=== PATIENT | female | born 2005 | race Caucasian/White ===

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

== ENCOUNTER 2024-02-18 12:03 | Emergency (ER) | payer OTHER ==
[~2024-02-18] VITALS: Ht 157.5 cm; Wt 50.8 kg
[~2024-02-18 12:03] MED LIST changes: -ACET-8386 PO; +ACET-8905 PO; +CALC-870 PO; +FAMO-90 PO
[2024-02-18 12:07] VITALS: BP 120/88; PULSE 90; RESP 22; TEMP 98.8; O2SAT 99
[2024-02-18 12:30] VITALS: O2SAT 99
[2024-02-18 12:41] VITALS: O2SAT 99
[2024-02-18] MEDS: ONDANSETRON 4 MG ODT PO ONE (12:41)
[2024-02-18] MEDS: DEXAMETHASONE 10 MG/ML VIAL IM ONE (12:42)
[2024-02-18] MEDS: KETOROLAC 30 MG/ML VIAL IM ONE (12:43)
[2024-02-18] MEDS ORDERED: IBUP-2213 PO (13:03)
[2024-02-18] MEDS ORDERED: PROM118S5 PO (13:03)
[2024-02-18] MEDS ORDERED: BENZ-300 PO (13:03)
[2024-02-18] MEDS ORDERED: ONDA-188 SL (13:03)
[2024-02-18] MEDS ORDERED: IMO2 PO (13:03)
[2024-02-18 13:29] LABS: FLU A ANTIGEN negative (NEGATIVE); FLU B ANTIGEN NEGATIVE (NEGATIVE)
== END 2024-02-18 13:19 | disposition home or self-care (01) ==
LOC: MED 12:03
DX: B34.9 Viral infection, unspecified (principal); R03.0 Elevated blood-pressure reading, without diagnosis of hypertension; Z20.822 Contact with and (suspected) exposure to COVID-19; Z79.1 Long term (current) use of non-steroidal anti-inflammatories (NSAID); Z79.2 Long term (current) use of antibiotics; Z79.899 Other long term (current) drug therapy
CPT/HCPCS: 81025; 87081; 87426; 87804; 96372; 99284; J1100; J1885; Q0162

== ENCOUNTER 2024-03-27 08:04 | Emergency (ER) | payer OTHER ==
[~2024-03-27] VITALS: Ht 160 cm; Wt 48.5 kg
[~2024-03-27 08:04] MED LIST changes: +BENZ-300 PO; +IBUP-2213 PO; +IMO2 PO; +ONDA-188 SL; +PROM118S5 PO
[2024-03-27 08:06] VITALS: BP 102/73; PULSE 97; RESP 16; TEMP 98.1; O2SAT 98
[2024-03-27] MEDS ORDERED: PRED50TA2 PO (08:32)
[2024-03-27] MEDS ORDERED: PSEU120T22 PO (08:32)
[2024-03-27] MEDS ORDERED: IBUP-2213 PO (08:32)
== END 2024-03-27 08:48 | disposition home or self-care (01) ==
LOC: MED 08:04
DX: J02.9 Acute pharyngitis, unspecified (principal); Z79.899 Other long term (current) drug therapy
CPT/HCPCS: 99283